=== PATIENT | male | born 1970 | race Caucasian/White ===

== ENCOUNTER 2017-06-15 13:30 | Emergency (ER) | payer SELFPAY ==
[2017-06-15 13:35] VITALS: RESP 18; TEMP 98.2
--- NOTE | 2017-06-15 15:12 | EDPHY ---
H & P Stated Complaint: CUT LEFT THUMB WITH SAW Time Seen by Provider: 06/15/17 15:05 HPI/ROS: CHIEF COMPLAINT: Thumbs duration HISTORY OF PRESENT ILLNESS: The patient is a 47-year-old man who comes to the emergency department complaining of a laceration to his left thumb. He states that he was using a skill saw and caught the fat pad of his left thumb. He denies other injuries. He does not think it involves the bone. Normal sensation and capillary refill. REVIEW OF SYSTEMS: Constitutional: denies: chills, fever, recent illness, recent injury EENTM: denies: blurred vision, double vision, nose congestion Respiratory: denies: cough, shortness of breath Cardiac: denies: chest pain, irregular heart rate, lightheadedness, palpitations Gastrointestinal/Abdominal: denies: abdominal pain, diarrhea, nausea, vomiting, blood streaked stools Genitourinary: denies: dysuria, frequency, hematuria, pain Musculoskeletal: denies: joint pain, muscle pain Skin: See HPI Neurological: denies: headache, numbness, paresthesia, tingling, dizziness, weakness Hematologic/Lymphatic: denies: blood clots, easy bleeding, easy bruising Immunologic/allergic: denies: HIV/AIDS, transplant EXAM: GENERAL: Well-appearing, well-nourished and in no acute distress. HEAD: Atraumatic, normocephalic. EYES: Pupils equal round and reactive to light, extraocular movements intact, sclera anicteric, conjunctiva are normal. ENT: TMs normal, nares patent, oropharynx clear without exudates. Moist mucous membranes. NECK: Normal range of motion, supple without lymphadenopathy or JVD. LUNGS: Breath sounds clear to auscultation bilaterally and equal. No wheezes rales or rhonchi. HEART: Regular rate and rhythm without murmurs, rubs or gallops. ABDOMEN: Soft, nontender, normoactive bowel sounds. No guarding, no rebound. No masses appreciated. BACK: No CVA tenderness, no spinal tenderness, step-offs or deformities EXTREMITIES: Normal range of motion, no pitting or edema. No clubbing or cyanosis. NEUROLOGICAL: Cranial nerves II through XII grossly intact. Normal speech, normal gait. 5/5 strength, normal movement in all extremities, normal sensation PSYCH: Normal mood, normal affect. SKIN: Jagged laceration to fat pad of left thumb. Grossly contaminated. Normal range of motion. Source: Patient Exam Limitations: No limitations - Personal History Current Tetanus Diphtheria and Acellular Pertussis (TDAP): Unsure - Medical/Surgical History Hx Asthma: No Hx Chronic Respiratory Disease: No Hx Diabetes: No Hx Cardiac Disease: No Hx Renal Disease: No Hx Cirrhosis: No Hx Alcoholism: No Hx HIV/AIDS: No Hx Splenectomy or Spleen Trauma: No Other PMH: DENIES - Family History Significant Family History: No pertinent family hx - Social History Smoking Status: Never smoked Alcohol Use: Sober Drug Use: None Constitutional: Initial Vital Signs Temperature (C) 36.8 C 06/15/17 13:33 Heart Rate 46 L 06/15/17 13:33 Respiratory Rate 18 06/15/17 13:33 Blood Pressure 140/74 H 06/15/17 13:33 O2 Sat (%) 96 06/15/17 13:33 O2 Delivery Mode Room Air Allergies/Adverse Reactions: Penicillins Allergy (Verified 06/15/17 13:33) Home Medications: Medication Instructions Recorded Cephalexin [Keflex] 500 mg PO TID #21 cap 06/15/17 Medical Decision Making - Diagnostics Imaging Results: Imaging Impressions Finger X-Ray 06/15/17 14:45 Impression: Soft tissue irregularity with no acute osseous findings. Imaging: Discussed imaging studies w/ yardage caller Radiologist Procedures: Procedure: Laceration repair. Verbal consent was obtained from the patient. The 3 cm v-shaped flap laceration was anesthetized with 1% lidocaine digital block. The wound was irrigated copiously according to protocol, draped and explored to its base. It was approximately 1/2 cm deep. There were no deep structures involved. No tendon, nerve, or vascular injury was identified when explored through full range of motion. No foreign body was identified. The wound was repaired with 5.0 PDS, 10 stitches, interrupted. The wound repair was complex with multiple flap realignment. The procedure was performed by myself. A dressing was then placed with sterile gauze and bacitracin. ED Course/Re-evaluation: We discussed suture care. I am concerned about infection. This wound was irrigated aggressively. I will start him on Augmentin and we discussed indications for returning. The wound was closed with loose approximation. The patient is allergic to penicillin, and will use Keflex. Differential Diagnosis: Partial list of the Differential diagnosis considered include but were not limited to; laceration, avulsion, foreign body and although unlikely based on the history and physical exam, I also considered bony injury, assault. I discussed these differential diagnoses and the plan with the patient as well as the usual and expected course. The patient understands that the diagnosis is provisional and that in medicine we are not always correct and that further workup is often warranted. Usual and customary warnings were given. All of the patient's questions were answered. The patient was instructed to return to the emergency department should the symptoms at all worsen or return, otherwise to followup with the physician as we discussed. - Data Points Medications Given: Discontinued Medications Diphtheria/Tetanus/Acell Pertussis (Boostrix) 0.5 ml IM .ONCE ONE Stop: 06/15/17 16:07 Last Admin: 06/15/17 16:08 Dose: 0.5 ml Departure - Departure Disposition: Home, Routine, Self-Care Clinical Impression: Laceration of left thumb Qualifiers: Encounter type: initial encounter Damage to nail status: without damage Foreign body presence: without foreign body Qualified Code(s): S61.012A - Laceration without foreign body of left thumb without damage to nail, initial encounter Condition: Fair Instructions: Finger Laceration (ED) Referrals: NONE *PRIMARY CARE P,. [Primary Care Provider] - As per Instructions Dc Gomes MD [Medical Doctor] - As per Instructions Prescriptions: Cephalexin [Keflex] 500 mg PO TID #21 cap
[2017-06-15] MEDS ORDERED: TDAP ADULT 0.5 ML INJ (BOOSTRIX) IM ONE (16:06)
[2017-06-15 16:12] VITALS: BP 122/66; PULSE 51; O2SAT 98
== END 2017-06-15 16:12 | disposition home or self-care (01) ==
PROC: 0HQGXZZ Repair Left Hand Skin, External Approach (ICD-10-PCS; principal; 2017-06-15)
DX: S61.012A Laceration without foreign body of left thumb without damage to nail, initial encounter (principal); Z23 Encounter for immunization; W31.2XXA Contact with powered woodworking and forming machines, initial encounter